=== PATIENT | male | born 1950 | race Caucasian/White ===

== ENCOUNTER 2017-03-11 17:15 | Observation (INO) | payer OTHER ==
--- NOTE | 2017-03-11 21:12 | PDOC ---
Attending Attestation - Resident Resident Name: Rick Cervantes - ED Attending Attestation I have performed the following: I have examined & evaluated the patient, The case was reviewed & discussed with the resident, I agree w/resident's findings & plan, Exceptions are as noted - HPI HPI: 03/11/17 21:07 Still bleeding Dental Extraction Site (since 1PM) - Physicial Exam PE: 03/11/17 21:09 Minimal Bleeding - Medical Decision Making 03/11/17 21:[address] Cervantes's Assessment and Plan <Rubio Cox - Last Filed: 03/11/17 21:07> - Medical Decision Making 03/12/17 00:06 Dr. Go, cardiology on-call, was called via phone answering service at this time and discussed the case with Dr. Rick Cervantes. <Laura Leach - Last Filed: 03/12/17 00:39>
--- NOTE | 2017-03-11 21:19 | PDOC ---
History of Present Illness - General Chief Complaint: Pain Stated Complaint: INJURY Time Seen by Provider: 03/11/17 20:59 History Source: Patient Exam Limitations: No Limitations - History of Present Illness Initial Comments: 03/11/17 21:11 The patient is a 66M with a PMH of HTN, DM on baby asa who presents to the ED after having a dental procedure (tooth extraction) and continuous bleeding. The patient had the dental procedure at 1300. He had continuous bleeding until 4pm when he returned to his dentist for the bleeding. At 415pm the dentist called his son to bring him to the ER. The patient has no other complaints. No allergies. Denies fever, chills, nausea, vomiting, bleeding disorders. Past History - Past Medical History Allergies/Adverse Reactions: Allergies Allergy/AdvReac Type Severity Reaction Status Date / Time No Known Allergies Allergy Verified 03/11/17 17:21 Home Medications: Ambulatory Orders Aspirin [ASA -] 162 mg PO DAILY #0 tab.chew 05/15/13 Lisinopril [Prinivil] 10 mg PO DAILY #0 tablet 05/15/13 Glipizide 10 mg PO DAILY 04/03/15 Diabetes: Yes Disorders: Yes (prostate hypertrophy) HTN: Yes - Surgical History Abdominal Surgery: Yes Orthopedic Surgery: Yes (RT SHOULDER SX 10/2014) - Immunization History Immunization Up to Date: Yes - Suicide/Smoking/Psychosocial Hx Smoking History: Never smoked Have you smoked in the past 12 months: No Hx Alcohol Use: Yes (BRAD) Drug/Substance Use Hx: No Substance Use Type: None, Alcohol Review of Systems - Review of Systems Able to Perform ROS?: Yes Is the patient limited Belarusian proficient: No Constitutional: No: Chills, Fever HEENTM: Yes: Other (Bleeding from tooth extraction). No: Eye Pain, Ear Discharge, Nose Pain Respiratory: No: Cough, Shortness of Breath Cardiac (ROS): No: Chest Pain, Palpitations ABD/GI: No: Constipated, Diarrhea, Nausea, Vomiting Musculoskeletal: No: Back Pain, Muscle Pain Integumentary: No: Bruising, Dryness Neurological: No: Headache, Numbness, Tingling, Weakness Hematologic/Lymphatic: No: Anemia, Blood Clots, Easy Bleeding, Easy Bruising *Physical Exam - Vital Signs Last Vital Signs Temp Pulse Resp BP Pulse Ox 106 H 20 161/123 100 03/11/17 18:41 03/11/17 17:17 03/11/17 18:41 03/11/17 18:41 - Physical Exam General Appearance: Yes: Nourished, Appropriately Dressed HEENT: positive: Normal Voice, Other (Tooth #29 extracted and bleeding) Respiratory/Chest: positive: Lungs Clear, Normal Breath Sounds Cardiovascular: positive: Regular Rhythm, Regular Rate, S1, S2. negative: Diastolic Murmur, Systolic Murmur Gastrointestinal/Abdominal: positive: Flat, Soft. negative: Tender Extremity: positive: Normal Inspection, Normal Range of Motion Integumentary: positive: Dry, Warm Neurologic: positive: Fully Oriented, Alert, Normal Mood/Affect ED Treatment Course - LABORATORY CBC & Chemistry Diagram: 03/11/17 22:10 03/11/17 23:50 Medical Decision Making - Medical Decision Making 03/11/17 21:40 The patient is a 66M who presented with persistent bleeding from his gum at tooth #29. I have packed the patient and told him to bite down to keep pressure. Will draw Hgb to make sure it is stable. 03/11/17 22:53 Hgb 12.6. Patient's bleeding has not stopped with gauze and pressure with tea bags. I have applied gel foam to the site and will reassess. 03/12/17 00:04 There were 2 sites of bleeding, to which I applied gel foam to both now with compression. The patient began to become diaphoretic and I ordered a fingerstick (182) and EKG which shows new RBBB with ST depressions in V3-V4 compared to an EKG from 2013 (most recent we had on file). The patient's asa is on board and due to the acute bleeding, I will not give plavix and asa. Will call cardiology for recs. 03/12/17 00:[address] Go, cardiology activities concierge, who is not concerned and states that this is most likely 2/2 to vagal stimulation. He also recommended holding off on anticoagulation 2/2 bleeding from gingiva. 03/12/17 01:[address] Navarro who accepts admission for obs tele. She recommended asking the patient for his licensed prosthetist/orthotist - he has seen the licensed prosthetist/orthotist once and does not remember his name. I have looked up the licensed prosthetist/orthotist and it is Dr. Walter. Will consult him on this admission. *DC/Admit/Observation/Transfer Diagnosis at time of Disposition: ST segment depression, Bleeding - Discharge Dispostion Condition at time of disposition: Guarded Admit: Yes - Referrals Referrals: Aisha Murphy MD [Primary Care Provider] -
[2017-03-11 22:20] LABS: BASOPHIL 0.6 % (0-2.0); EOSINOPHIL 0.6 % (0-4.5); MCH 32.2 pg (25.7-33.7); MCHC 35.4 g/dl (32.0-35.9); MEAN CELL VOLUME 90.9 fl (80-96); MEAN PLT VOLUME 8.4 fl (7.5-11.1); NEUTROPHILS 69.7 % (42.8-82.8); PLATELET COUNT 150 K/MM3 (134-434); RDW 13.9 % (11.9-15.9); WHITE BLOOD COUNT 7.7 K/mm3 (4.0-10.0)
[2017-03-11 22:42] LABS: INR 1.08 (0.82-1.09); PROTHROMBIN TIME (PATIENT) 12.2 SEC (9.98-11.88)
[2017-03-11 22:45] LABS: ACTIVATED PTT 29.8 SECONDS (26.9-34.4)
[2017-03-11 22:52] LABS: ALBUMIN 3.7 g/dl (3.4-5.0); ANION GAP 11 (8-16); BILIRUBIN,TOTAL 1.3 mg/dL (0.2-1.0); CALCIUM 8.6 mg/dL (8.5-10.1); CO2 22 mmol/L (21-32); CREATININE 0.9 mg/dL (0.7-1.3); GLUCOSE,RANDOM 155 mg/dL (74-106); SGOT/AST 33 U/L (15-37); SGPT/ALT 32 U/L (12-78); TOT PROT 7.1 g/dl (6.4-8.2)
[2017-03-11 22:53] LABS: ALK PHOS 48 U/L (45-117)
[2017-03-11] MEDS ORDERED: DEXTROSE 50%-WATER - 25 GM/50 ML VIAL IVPUSH ONE (23:35)
[2017-03-11] MEDS ORDERED: ASPIRIN 81 MG CHEWABLE TABLETS ONE (23:49)
[2017-03-11] MEDS ORDERED: CLOPIDOGREL BISULFATE 300 MG TABLET ONE (23:49)
[2017-03-11] MEDS ORDERED: ASPIRIN 81 MG CHEWABLE TABLETS PO ONE (23:54)
[2017-03-12 00:15] LABS: ALBUMIN 3.8 g/dl (3.4-5.0); ANION GAP 13 (8-16); BILIRUBIN,TOTAL 1.3 mg/dL (0.2-1.0); CALCIUM 8.4 mg/dL (8.5-10.1); CO2 22 mmol/L (21-32); CREATININE 0.9 mg/dL (0.7-1.3); GLUCOSE,RANDOM 153 mg/dL (74-106); MAGNESIUM 1.6 mg/dL (1.8-2.4); SGOT/AST 30 U/L (15-37); SGPT/ALT 32 U/L (12-78)
[2017-03-12 00:18] LABS: ALK PHOS 49 U/L (45-117); CPK 238 IU/L (39-308); TROPONIN I < 0.02 ng/ml (0.00-0.05)
[2017-03-12] MEDS ORDERED: SODIUM CHLORIDE 0.9% 1000 ML INFUS.BAG IV ONE (00:22)
[2017-03-12] MEDS ORDERED: NITROGLYCERIN 2% OINTMENT - 1GM PACKET TD ONE ×2 (00:32→00:58)
[2017-03-12 06:32] LABS: MCH 32.3 pg (25.7-33.7); MCHC 35.9 g/dl (32.0-35.9); MEAN CELL VOLUME 90.1 fl (80-96); MEAN PLT VOLUME 8.9 fl (7.5-11.1); PLATELET COUNT 171 K/MM3 (134-434); RDW 13.4 % (11.9-15.9); WHITE BLOOD COUNT 6.8 K/mm3 (4.0-10.0)
[2017-03-12 06:57] LABS: CPK 127 IU/L (39-308); TROPONIN I < 0.02 ng/ml (0.00-0.05)
--- NOTE | 2017-03-12 10:34 | PN ---
Progress Note, Physician Chief Complaint: Pt lying in bed No bleeding from tooth extraction site,No chest pain Drop in HB/HCT - Objective Vital Signs: Vital Signs Temperature 97.9 F 03/12/17 09:55 Pulse Rate 78 03/12/17 09:55 Respiratory Rate 18 03/12/17 09:55 Blood Pressure 110/64 03/12/17 09:55 O2 Sat by Pulse Oximetry (%) 100 03/12/17 08:48 Constitutional: Yes: Well Nourished HENT: Yes: WNL, Other (No bleeding from tooth extraction site) Neck: Yes: WNL Cardiovascular: Yes: WNL Respiratory: Yes: WNL Gastrointestinal: Yes: WNL, Normal Bowel Sounds Musculoskeletal: Yes: WNL Extremities: Yes: WNL Edema: No Peripheral Pulses WNL: Yes Neurological: Yes: WNL ...Motor Strength: WNL Psychiatric: Yes: WNL Labs: CBC, BMP 03/12/17 06:15 INR, PTT INR 1.08 (0.82-1.09) 03/11/17 22:10 - ....Imaging Chest X-ray: Report Reviewed EKG: Report Reviewed Assessment/Plan Bleeding from tooth extrction site Abnormal EKG HTN DM PLAN MOnitor for bleeding Cardiology F/u Monitor CBC
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
[2017-03-12 10:54] VITALS: BMI 22.6
[2017-03-12] MEDS ORDERED: DIPYRIDAMOLE STRESS TEST 42 MG in DEXTROSE 5%-WATER - 33.6 ML IVPB ONE (12:15)
[2017-03-12] MEDS ORDERED: REGADENOSON 0.4 MG/5 ML PRE-FILLED SYRINGE IVPUSH ONE (12:15)
--- NOTE | 2017-03-12 12:34 | HP ---
DATE OF ADMISSION: 03/12/2017 HISTORY OF PRESENT ILLNESS: Patient is a 66-year-old male with history of hypertension and diabetes, who presented to the emergency room after having a tooth extraction and continuous bleeding from extraction site. The tooth was extracted around 2 o'clock yesterday and had continuous bleeding until 4 p.m., and he had returned to the dental office, recommended to come to the ER for evaluation. PAST MEDICAL HISTORY: History of hypertension, diabetes, history of enlarged prostate. SURGICAL HISTORY: Right shoulder surgery. ALLERGIES: No known drug allergies. MEDICATIONS: Patient is taking lisinopril, aspirin, and glipizide 10 mg daily. REVIEW OF SYSTEMS: General: No fever. HEENT: Toothache present and bleeding from the extraction site. Chest: Nothing significant. Cardiovascular: History of hypertension. Endocrine: History of diabetes. Gastrointestinal: Nothing significant. Genitourinary: History of enlarged prostate. Neurological: Nothing significant. PHYSICAL EXAMINATION: Vital Signs: The patient in the emergency room pulse rate 106, respirations 20, blood pressure 161/110, pulse oximetry 100%. Head and Neck: There is bleeding from the tooth extraction site in the lower jaw. Neck is supple. No JVD. Chest: Clear. Cardiovascular: The first and second sounds normal. Abdomen: Soft. No tenderness. No distension. Bowel sounds present. Neurologic: Alert, oriented x3. No apparent motor or sensory deficit. Deep tendon reflexes normal. Pressure applied at the bleeding site. On examination, according to the emergency room note, patient felt diaphoretic and sweaty. Fingerstick was done, and it was 182. Patient was not complaining of any chest pain, palpitations. No syncopal episode. Regarding the blood work, CBC normal. CMP normal. INR 1.08. PT 12.2, PTT 29.8. Platelets 150. ALT and AST normal. Troponin less than 0.2. Total bilirubin 1.3, alkaline phosphatase 49. EKG done shows right bundle branch block, ST depression in leads V3 and V4. Compared to the old EKG in 2013, the ST depression is a new change. Addendum: As per the patient, he is an alcoholic. The patient had a stress test done last year, and it was normal. The patient is admitted to telemetry for observation. ADMITTING DIAGNOSES: 1. Bleeding from tooth extraction site. 2. Abnormal electrocardiogram. PLAN: Continue the home medications. Cardiology consult. Hold aspirin. Monitor the labs. Monitor for bleeding. The patient is stable on the floor. ALYSSA CODY M.D. /[id number]
--- NOTE | 2017-03-12 12:59 | EKG ---
Test Reason : Blood Pressure : / mmHG Vent. Rate : 082 BPM Atrial Rate : 082 BPM P-R Int : 194 ms QRS Dur : 146 ms QT Int : 416 ms P-R-T Axes : 057 025 006 degrees QTc Int : 486 ms NORMAL SINUS RHYTHM RIGHT BUNDLE BRANCH BLOCK T WAVE ABNORMALITY, CONSIDER INFERIOR ISCHEMIA ABNORMAL ECG WHEN COMPARED WITH ECG OF 14-MAY-2013 10:54, RIGHT BUNDLE BRANCH BLOCK IS NOW PRESENT Confirmed by JAKY OSORIO, VIVIANE ([id number]) on 03/12/2017 12:58:46 PM Referred By: Confirmed By:VIVIANE STARKEY MD
[2017-03-12] MEDS ORDERED: ACETAMINOPHEN 325 MG TABLET (FP) PO PRN (20:55)
[2017-03-13] MEDS ORDERED: glipiZIDE 10 MG TABLET (FP) PO SCH (07:00)
[2017-03-13 07:20] LABS: BASOPHIL 0.9 % (0-2.0); MCH 31.8 pg (25.7-33.7); MCHC 35.5 g/dl (32.0-35.9); MEAN CELL VOLUME 89.5 fl (80-96); MEAN PLT VOLUME 8.6 fl (7.5-11.1); NEUTROPHILS 45.5 % (42.8-82.8); PLATELET COUNT 127 K/MM3 (134-434); RDW 13.9 % (11.9-15.9); WHITE BLOOD COUNT 4.2 K/mm3 (4.0-10.0)
--- NOTE | 2017-03-13 09:46 | PN ---
Progress Note (short form) - Note Progress Note: s: no cp sob palps dizzy o: Vital Signs Period Temp Pulse Resp BP Sys/Bates Pulse Ox Last 24 Hr 97.7 F-98.5 F 76-90 17-19 110-136/61-79 100-100 nad no jvd rrr s1s2 no mrg cta bl nl eff aaox3 no le e/c/c no jaundice diaphoresis abd nt nd pos bs Current Medications Generic Name Dose Route Start Last Admin Trade Name Freq PRN Reason Stop Dose Admin Acetaminophen 650 mg 03/12/17 20:55 03/12/17 21:10 Tylenol - PO 650 mg Q6H PRN Administration FEVER OR PAIN Glipizide 10 mg 03/13/17 07:00 03/13/17 06:51 Glucotrol - PO 10 mg DAILY@0700 JENNIFER Administration Valsartan 160 mg 03/13/17 10:00 03/13/17 09:36 Diovan - PO 160 mg DAILY JENNIFER Administration Laboratory Last Values WBC 4.2 K/mm3 (4.0-10.0) D 03/13/17 06:45 RBC 2.88 M/mm3 (4.00-5.60) L 03/13/17 06:45 Hgb 9.2 GM/dL (11.7-16.9) L 03/13/17 06:45 Hct 25.8 % (35.4-49) L 03/13/17 06:45 MCV 89.5 fl (80-96) 03/13/17 06:45 MCH 31.8 pg (25.7-33.7) 03/13/17 06:45 MCHC 35.5 g/dl (32.0-35.9) 03/13/17 06:45 RDW 13.9 % (11.9-15.9) 03/13/17 06:45 Plt Count 127 K/MM3 (134-434) L D 03/13/17 06:45 MPV 8.6 fl (7.5-11.1) 03/13/17 06:45 Neutrophils % 45.5 % (42.8-82.8) D 03/13/17 06:45 Lymphocytes % 43.7 % (8-40) H D 03/13/17 06:45 Monocytes % 7.9 % (3.8-10.2) 03/13/17 06:45 Eosinophils % 2.0 % (0-4.5) D 03/13/17 06:45 Basophils % 0.9 % (0-2.0) 03/13/17 06:45 PT with INR 12.20 SEC (9.98-11.88) H 03/11/17 22:10 INR 1.08 (0.82-1.09) 03/11/17 22:10 PTT (Actin FS) 29.8 SECONDS (26.9-34.4) 03/11/17 22:10 Sodium 137 mmol/L (136-145) 03/11/17 23:50 Potassium 3.7 mmol/L (3.5-5.1) 03/11/17 23:50 Chloride 102 mmol/L (98-107) 03/11/17 23:50 Carbon Dioxide 22 mmol/L (21-32) 03/11/17 23:50 Anion Gap 13 (8-16) 03/11/17 23:50 BUN 21 mg/dL (7-18) H 03/11/17 23:50 Creatinine 0.9 mg/dL (0.7-1.3) 03/11/17 23:50 Creat Clearance w eGFR > 60 (>60) 03/11/17 23:50 POC Glucometer 187 UNITS (()) 03/13/17 06:50 Random Glucose 153 mg/dL (74-106) H 03/11/17 23:50 Calcium 8.4 mg/dL (8.5-10.1) L 03/11/17 23:50 Magnesium 1.6 mg/dL (1.8-2.4) L 03/11/17 23:50 Total Bilirubin 1.3 mg/dL (0.2-1.0) H 03/11/17 23:50 AST 30 U/L (15-37) 03/11/17 23:50 ALT 32 U/L (12-78) 03/11/17 23:50 Alkaline Phosphatase 49 U/L (45-117) 03/11/17 23:50 Creatine Kinase 127 IU/L (39-308) 03/12/17 06:15 Creatine Kinase Index 1.0 % (0.0-5.0) 03/11/17 23:50 CK-MB (CK-2) 2.390 ng/mL (0.5-3.6) 03/11/17 23:50 Troponin I < 0.02 ng/ml (0.00-0.05) 03/12/17 06:15 Total Protein 7.0 g/dl (6.4-8.2) 03/11/17 23:50 Albumin 3.8 g/dl (3.4-5.0) 03/11/17 23:50 Blood Type A POSITIVE 03/12/17 06:15 Antibody Screen Negative 03/12/17 06:15 cxr: clear lungs ecg 03/11/17: sr, rbbb, no st changes echo 02/2017: nl lv/rv, no sig valve path mibi 02/2017: no ischemia, nl lvef tele: sr, artifact a/p: 66 m hx htn, dm, hld here with gum bleeding after dental extraction. abnl ecg: -had likely vasovagal episode during gum bleeding. ecg shows rbbb which is new from several years ago. -no signs acs, ce's negx2 -pt has no cp/sob/angina -echo and mibi here unremarkable htn: -cont home meds hld: -stable pt ok for dc today from cardiac pov
--- NOTE | 2017-03-13 09:53 | PN ---
Progress Note, Physician Chief Complaint: Pt lying in bed No bleeding from tooth extraction site,No chest pain HB/HCT stable exercise and nuclear stress report negative ECHO nl d/c home - Current Medication List Current Medications: Active Medications Acetaminophen (Tylenol -) 650 mg PO Q6H PRN PRN Reason: FEVER OR PAIN Last Admin: 03/12/17 21:10 Dose: 650 mg Glipizide (Glucotrol -) 10 mg PO DAILY@0700 [facility] Last Admin: 03/13/17 06:51 Dose: 10 mg Valsartan (Diovan -) 160 mg PO DAILY [facility] Last Admin: 03/13/17 09:36 Dose: 160 mg - Objective Vital Signs: Vital Signs Temperature 97.7 F 03/13/17 06:00 Pulse Rate 76 03/13/17 06:00 Respiratory Rate 17 03/13/17 06:00 Blood Pressure 136/67 03/13/17 06:00 O2 Sat by Pulse Oximetry (%) 100 03/13/17 00:00 Constitutional: Yes: No Distress Eyes: Yes: Conjunctiva Clear HENT: Yes: Atraumatic Neck: Yes: Supple Cardiovascular: Yes: Regular Rate and Rhythm Respiratory: Yes: Regular, CTA Bilaterally Gastrointestinal: Yes: Normal Bowel Sounds, Soft Musculoskeletal: Yes: WNL Extremities: Yes: WNL Edema: Yes Peripheral Pulses WNL: Yes Neurological: Yes: WNL, Alert ...Motor Strength: WNL Psychiatric: Yes: WNL, Alert Labs: CBC, BMP 03/13/17 06:45 INR, PTT INR 1.08 (0.82-1.09) 03/11/17 22:10 Assessment/Plan Bleeding from tooth extrction site,controlled Abnormal EKG HTN DM Stress test negative PLAN d/c home on home meds F/u with Pmd Hold ASA
[2017-03-13] MEDS ORDERED: VALSARTAN 160 MG TABLET (UD) PO SCH (10:00)
[2017-03-13 10:23] VITALS: BP 132/68; PULSE 77; TEMP 98
--- NOTE | 2017-03-17 15:12 | DS ---
Physical Examination Vital Signs: Vital Signs Temperature 98.0 F 03/13/17 10:00 Pulse Rate 77 03/13/17 10:00 Respiratory Rate 18 03/13/17 10:00 Blood Pressure 132/68 03/13/17 10:00 O2 Sat by Pulse Oximetry (%) 100 03/13/17 00:00 Labs: CBC, BMP 03/13/17 06:45 Discharge Summary Reason For Visit: ST SEGMENT DEPRESSION/HEMORRHAGE Gum bleeding after dental extraxction Syncopal ?vasovagal episode Htn DM Hospital Course: Ptwith h/o HTN,DM kept for observation for bleeding after dental extraction.Pt developed diaphoresis? vasovagal episode in the ER.EKS shows new RBBB and T wave changes.Cardiac enzymes were NL.CBC,CMP were NL.X ray chest no infiltrate.Pt was seen by cardiology.ECHO and stress tests were NL Pt was stable on the FLoor.No bleeding noticed after hospitalisation.Pt d/c home on home medications in a stable condition and rec to f/u with dentist and f /u with PMD Condition: Stable - Instructions Referrals: Aisha Murphy MD [Primary Care Provider] - Disposition: HOME - Home Medications Comprehensive Discharge Medication List: Ambulatory Orders Lisinopril [Prinivil] 10 mg PO DAILY #0 tablet 05/15/13 Glipizide 10 mg PO DAILY 04/03/15
== END 2017-03-13 10:36 | disposition home or self-care (01) ==
LOC: JER 17:15 → JERBED 03-12 01:14 → UNDOADMOB 03-12 01:50 → JERBED 03-12 01:50 → J4W 03-12 09:23
PROVIDERS: ADMIT Family Medicine; ATTEND Family Medicine
PROC: 3E033GC Introduction of Other Therapeutic Substance into Peripheral Vein, Percutaneous Approach (ICD-10-PCS; principal; 2017-03-12)
PROC: 3E0337Z Introduction of Electrolytic and Water Balance Substance into Peripheral Vein, Percutaneous Approach (ICD-10-PCS; 2017-03-12)
DX: K91.840 Postprocedural hemorrhage of a digestive system organ or structure following a digestive system procedure (principal); R94.31 Abnormal electrocardiogram [ECG] [EKG]; I10 Essential (primary) hypertension; I45.10 Unspecified right bundle-branch block; E11.9 Type 2 diabetes mellitus without complications; Z79.82 Long term (current) use of aspirin; Z79.84 Long term (current) use of oral hypoglycemic drugs
CPT/HCPCS: 36415; 71020-TC; 78452-TC; 80053; 82550; 82553; 83735; 84484; 85025; 85027; 85610; 85730; 86850; 86900; 86901; 93005; 93010; 93017; 93306-TC; 96374; 99284-25; A9502; G0378; J2785

== ENCOUNTER 2017-07-17 10:11 | Day surgery (SDC) | payer OTHER ==
[2017-07-16 14:19] VITALS: BMI 26.4
--- NOTE | 2017-07-17 09:12 | HP ---
History & Physical Update - History History: No Change - Physical Physical: No Change - Assessment Assessment: No Change - Plan Plan: No Change
[2017-07-17] MEDS ORDERED: BUPIVACAINE HCL/PF 0.5% (5MG/ML) 10 ML VIAL ONE (12:38)
[2017-07-17] MEDS ORDERED: fentaNYL CITRATE 250 MCG/5 ML VIAL ONE (12:44)
[2017-07-17] MEDS ORDERED: ROCURONIUM BROMIDE 50 MG/5 ML VIAL ONE ×2 (12:45→13:40)
[2017-07-17] MEDS ORDERED: SUCCINYLCHOLINE CHLORIDE 200 MG/10 ML VIAL ONE (12:45)
[2017-07-17] MEDS ORDERED: PROPOFOL 20 ML ONE (12:45)
[2017-07-17] MEDS ORDERED: ceFAZolin SODIUM 1 GM VIAL IVPB ONE (12:52)
[2017-07-17] MEDS ORDERED: KETOROLAC TROMETHAMINE 30 MG/1 ML VIAL ONE (13:50)
[2017-07-17] MEDS ORDERED: LIDOCAINE HCL/PF 2% SDV 5ML VIAL ONE (13:50)
[2017-07-17] MEDS ORDERED: GLYCOPYRROLATE 0.2 MG/1 ML VIAL ONE (13:50)
[2017-07-17] MEDS ORDERED: DEXAMETHASONE SOD PHOSPHATE 4 MG/1 ML VIAL ONE (13:50)
[2017-07-17] MEDS ORDERED: ceFAZolin SODIUM 1 GM VIAL ONE (13:51)
[2017-07-17] MEDS ORDERED: NEOSTIGMINE METHYLSULFATE 0.5 MG/ML - 10 ML MDV ONE (13:51)
[2017-07-17] MEDS ORDERED: BUPIVACAINE HCL/PF 0.5% (5MG/ML) 10 ML VIAL IJ ONE (13:55)
--- NOTE | 2017-07-17 14:04 | OP ---
Operative Note - Note: Operative Date: 07/17/17 Pre-Operative Diagnosis: Cholelithiais, cholecystitis. Operation: Laparoscopic cholecystectomy, lusis of intestinal and peritoneal adhesions. Findings: Long gallbladder with adhesions of small bowel, with calculii. Surgeon: Thuy Haley [employer] Gatherer: Ayesha Bronson Anesthesia: General Specimens Removed: Gallbladder. Estimated Blood Loss (mls): 25 Operative Report Dictated: Yes
[2017-07-17] MEDS ORDERED: IBUPROFEN 600 MG TABLET (FP) PO PRN (14:16)
--- NOTE | 2017-07-17 14:18 | SURG ---
Surgery Apartment Community Manager Note Apartment Community Manager: Ayesha Bronson PA-C Date of Service: 07/17/17 Diagnosis: Cholelithiasis, Cholecystitis Procedure: Laparoscopic cholecystectomy, lusis of intestinal and peritoneal adhesions. I was present for the entirety of the operative procedure. For further detail, please refer to operative report. Visit type - Case Type Case Type: Scheduled Admission - Emergency Emergency Visit: No - New patient This patient is new to me today: Yes Date on this admission: 07/17/17
[2017-07-17] MEDS ORDERED: ACETAMINOPHEN 325 MG TABLET (FP) PO PRN ×2 (14:22)
[2017-07-17] MEDS ORDERED: oxyCODONE HCL 5 MG TABLET PO PRN ×2 (14:22)
[2017-07-17] MEDS ORDERED: ONDANSETRON 4 MG/2 ML VIAL IVPUSH PRN (14:36)
[2017-07-17] MEDS ORDERED: LACTATED RINGERS SOLUTION 1,000 ML IV SCH (14:45)
[2017-07-17 15:48] LABS: HEMATOCRIT 40.7 % (35.4-49); HEMOGLOBIN 13.9 GM/dL (11.7-16.9); MCH 28.7 pg (25.7-33.7); MCHC 34.2 g/dl (32.0-35.9); MEAN CELL VOLUME 83.9 fl (80-96); MEAN PLT VOLUME 9.5 fl (7.5-11.1); PLATELET COUNT 174 K/MM3 (134-434); RBC 4.85 M/mm3 (4.00-5.60); RDW 14.2 % (11.9-15.9); WHITE BLOOD COUNT 8.3 K/mm3 (4.0-10.0)
--- NOTE | 2017-07-17 15:48 | OP ---
DATE OF OPERATION: 07/17/2017 PREOPERATIVE DIAGNOSIS: Cholelithiasis, chronic cholecystitis. POSTOPERATIVE DIAGNOSIS: Cholelithiasis, chronic cholecystitis. Intestinal internal adhesions around the gallbladder. OPERATIVE PROCEDURE: Laparoscopic cholecystectomy, lysis of intestinal adhesions. SURGEON: mE Haley M.D. TOOL CRIB MANAGER: Addie Cedillo ANESTHESIA: General anesthesia. OPERATIVE DESCRIPTION: This 66-year-old man has chronic right upper quadrant abdominal pain and was found to have gallstones. Patient was brought in for laparoscopic cholecystectomy. Risks, benefits, and complications had been discussed with the patient. General anesthesia was administered, the abdomen painted and draped. An incision was made in the infraumbilical portion of the umbilicus. This was deepened inside the skin, subcutaneous tissue, and the linea alba. The peritoneum was incised, and a 10 to 12 mm laparoscopic trocar, of the Farias type, was introduced into the abdominal cavity. The abdomen was inflated with carbon dioxide at 6 L per minute with maximum intraabdominal pressures of 15 mmHg. A 5 -mm camera was introduced into the abdominal cavity. The patient seemed to have adhesions in the right lower quadrant of the abdomen from prior surgery; however , the right upper quadrant had no adhesions. Two 5-mm trocars were inserted in the right upper quadrant of the abdomen, one along the mid clavicular line, and another along the anterior axillary line 2-3 fingerbreadths below the costal margin. These were noted anterior abdominal cavity through the laparoscopic camera. A 3rd 5-mm trocar was inserted in the midline in subxiphoid area. This was noted into the abdominal cavity to the right of the first round ligament. The gallbladder was then visualized. The gallbladder was grasped at the fundus with a grasper through the lateral 5-mm port site. The gallbladder was inserted cephalad and laterally, thus exposing the rest of the gallbladder. The gallbladder was long, and infundibulum of the gallbladder was surrounded with peritoneal adhesions as well as the duodenum. This was carefully lysed with sharp and blunt dissection and exposing the infundibulum. Once the infundibulum was exposed, this was grasped with another grasper through the middle 5-mm port site. This was retracted inferiorly and laterally to expose the Calot 's triangle. With an Endoshear on the subxiphoid port, the peritoneal reflection around the infundibulum of the gallbladder and the cystic duct was incised and with sharp and blunt dissection the gallbladder and the cystic duct were isolated circumferentially. Further blunt dissection exposed the cystic artery within the Calot's triangle, thus exposing the critical view. The cystic artery was then divided between clips. After dividing the cystic artery, there was noted some bleeding. This was controlled with a sponge placed within the gallbladder fossa and pressure. The cystic duct was then divided between clips. The peritoneal reflection on either side of the gallbladder was then incised and the gallbladder dissected with sharp and blunt dissection all the way to the fundus of the gallbladder. The cholecystectomy was also accomplished. An Endocatch was introduced through the umbilical port. The gallbladder was placed in Endocatch and retrieved out of the abdominal cavity. The camera was switched to the subxiphoid port during this procedure. The gallbladder contained stones. When this was done, the gallbladder fossa was then again visualized. The packing was removed, no bleeding was noted. Visibility was good. Cystic artery clips were intact. Gallbladder fossa was then thoroughly irrigated with normal saline, the fluid return was clear. There was no bleeding. Two pieces of Surgicel were then placed through the umbilical port and placed in the gallbladder fossa at the site of the gallbladder neck. The camera was switched between the 5-mm and the 10-mm camera, as needed. Hemostasis was satisfactory at the completion of the procedure. Estimated blood loss was about 25 mL. The instruments were withdrawn under direct vision, the linea alba in the midline was approximated with interrupted and [id number] 2-0 Vicryl sutures , 0.4% Marcaine was injected into the wound. Skin approximated with buried interrupted 4-0 Monocryl sutures. Patient tolerated the procedure well, was extubated and sent to the recovery room in satisfactory and stable condition. Sheldon [id number] cc: PORSHA
[2017-07-17] MEDS: SODIUM CHLORIDE 1,000 ML IV SCH (17:15)
[2017-07-17] MEDS: glipiZIDE 10 MG TABLET (FP) PO SCH (17:48)
[2017-07-17] MEDS: metFORMIN HCL 500 MG TABLET (FP) PO SCH (17:48)
[2017-07-17] MEDS: INSULIN SLIDING SCALE (NOVOLOG) 1 VIAL SQ SCH (17:49)
[2017-07-17 21:59] LABS: HEMATOCRIT 35.6 % (35.4-49); HEMOGLOBIN 12.1 GM/dL (11.7-16.9); MCH 28.4 pg (25.7-33.7); MCHC 33.9 g/dl (32.0-35.9); MEAN CELL VOLUME 83.8 fl (80-96); PLATELET COUNT 202 K/MM3 (134-434); RBC 4.25 M/mm3 (4.00-5.60); RDW 14.4 % (11.9-15.9); WHITE BLOOD COUNT 6.8 K/mm3 (4.0-10.0)
[2017-07-18 02:06] VITALS: PULSE 57
[2017-07-18 05:53] VITALS: BP 117/52; TEMP 98.4
[2017-07-18] MEDS: metFORMIN HCL 500 MG TABLET (FP) PO SCH (06:24)
[2017-07-18] MEDS: glipiZIDE 10 MG TABLET (FP) PO SCH (06:24)
[2017-07-18] MEDS: INSULIN SLIDING SCALE (NOVOLOG) 1 VIAL SQ SCH ×2 (06:29→11:14)
[2017-07-18] MEDS: SODIUM CHLORIDE 1,000 ML IV SCH (06:33)
[2017-07-18] MEDS ORDERED: INSULIN (NOVOLOG) ASPART 100 UNITS/ML 10ML VIAL ONE (06:38)
[2017-07-18 08:05] LABS: HEMATOCRIT 36.2 % (35.4-49); HEMOGLOBIN 12.1 GM/dL (11.7-16.9); MCHC 33.5 g/dl (32.0-35.9); MEAN CELL VOLUME 83.5 fl (80-96); MEAN PLT VOLUME 9.5 fl (7.5-11.1); PLATELET COUNT 212 K/MM3 (134-434); RBC 4.34 M/mm3 (4.00-5.60); RDW 14.2 % (11.9-15.9); WHITE BLOOD COUNT 8.3 K/mm3 (4.0-10.0)
[2017-07-18] MEDS ORDERED: PT OWN MED DRAWER 7, Y5N ONE (09:54)
[2017-07-18] MEDS ORDERED: FENOFIBRIC ACID 135 MG CAP PO SCH (10:00)
[2017-07-18] MEDS ORDERED: VALSARTAN 160 MG TABLET (UD) PO SCH (10:00)
--- NOTE | 2017-07-18 10:48 | PN ---
Progress Note, Physician - Current Medication List Current Medications: Active Medications Acetaminophen (Tylenol -) 325 mg PO Q4H PRN PRN Reason: PAIN LEVEL 1-5 Stop: 07/20/17 14:21 Acetaminophen (Tylenol -) 650 mg PO Q4H PRN PRN Reason: PAIN LEVEL 6-10 Stop: 07/20/17 14:21 Last Admin: 07/17/17 21:52 Dose: 650 mg Fenofibric Acid (Trilipix -) 135 mg PO DAILY [facility] Last Admin: 07/18/17 09:56 Dose: 135 mg Glipizide (Glucotrol -) 10 mg PO BIDI [facility] Last Admin: 07/18/17 06:24 Dose: 10 mg Sodium Chloride (Normal Saline -) 1,000 mls @ 75 mls/hr IV ASDIR [facility] Last Admin: 07/18/17 06:33 Dose: 75 mls/hr Lactated Ringer's (Lactated Ringers Solution) 1,000 mls @ 75 mls/hr IV ASDIR [facility] Last Admin: 07/17/17 15:01 Dose: 350 mls Ibuprofen (Motrin -) 600 mg PO Q6H PRN PRN Reason: FEVER Insulin Aspart (Novolog Vial Sliding Scale -) 1 vial SQ TIDAC [facility] PRN Reason: Protocol Last Admin: 07/18/17 06:29 Dose: 2 units Metformin HCl (Glucophage -) 500 mg PO BIDI [facility] Last Admin: 07/18/17 06:24 Dose: 500 mg Ondansetron HCl (Zofran Injection) 4 mg IVPUSH Q6H PRN PRN Reason: NAUSEA AND/OR VOMITING Oxycodone HCl (Roxicodone -) 5 mg PO Q4H PRN PRN Reason: PAIN LEVEL 1-5 Oxycodone HCl (Roxicodone -) 10 mg PO Q4H PRN PRN Reason: PAIN LEVEL 6-10 Last Admin: 07/17/17 21:51 Dose: 10 mg Valsartan (Diovan -) 160 mg PO DAILY [facility] Last Admin: 07/18/17 09:56 Dose: 160 mg - Objective Vital Signs: Vital Signs Temperature 98.4 F 07/18/17 05:30 Pulse Rate 57 L 07/18/17 05:30 Respiratory Rate 16 07/18/17 05:30 Blood Pressure 117/52 07/18/17 05:30 O2 Sat by Pulse Oximetry (%) 97 07/17/17 21:00 Labs: CBC, BMP 07/18/17 06:30 Assessment/Plan Patient is out of bed, talking. Abdomen is soft , not tender. Hematocrit is stable. Discharge home. Follow up in my office.
--- NOTE | 2017-07-21 13:36 | PATH ---
Surgical Pathology Report Patient Name: KAERN DIANA [facility]. Rec. #: [id number] /Age/Gender: 1950 (Age: 66) / M Account: [id number] Location: [facility] SURGICAL Taken: 07/17/2017 Received: 07/20/2017 Reported: 07/21/2017 Physicians: Em Haley M.D. Specimen(s) Received GALLBLADDER Clinical History Cholelithiasis, chronic cholecystitis Final Diagnosis GALLBLADDER, LAPAROSCOPIC CHOLECYSTECTOMY: CHRONIC CHOLECYSTITIS AND CHOLELITHIASIS. Electronically Signed Ngozi Conley M.D. Gross Description Received in formalin, labeled "gallbladder," is a 6.0 x 2.2 x 2.0 cm. gallbladder with a 0.2 cm. in length portion of cystic duct attached. The outer surface is cortés green and varies from smooth to shaggy. The lumen contains green, tenacious bile as well as multiple black, irregular to fragmented cholelith ranging from 0.1-1.0 cm in greatest dimension. The mucosa is green and velvety. The wall of the gallbladder averages 0.1 cm. in thickness. Side Door Man sections are submitted in one cassette. 07/20/201707/20/2017
== END 2017-07-18 12:06 | disposition home or self-care (01) ==
LOC: JASU-SURG 10:11 → J6S 17:15 → JASU-SURG 07-18 12:06
PROVIDERS: ATTEND Specialist
PROC: 0FT44ZZ Resection of Gallbladder, Percutaneous Endoscopic Approach (ICD-10-PCS; principal; 2017-07-17 12:00)
DX: K80.10 Calculus of gallbladder with chronic cholecystitis without obstruction (principal); K66.0 Peritoneal adhesions (postprocedural) (postinfection)
CPT/HCPCS: 36415; 82962; 85027; 88304-TC; 94760

== ENCOUNTER 2017-10-30 08:22 | Day surgery (SDC) | payer OTHER ==
[2017-10-29 09:00] VITALS: BMI 26.2
--- NOTE | 2017-10-30 10:32 | HP ---
[facility] - Chief Complaint Chief Complaint: Mass and pain in left groin for past 3 months. History Source: Patient Limitations to Obtaining History: No Limitations - Past Medical History Allergies/Adverse Reactions: Allergies Allergy/AdvReac Type Severity Reaction Status Date / Time No Known Allergies Allergy Verified 10/29/17 08:53 Cardiovascular: Yes: HTN - Current Medications Current Medications: Home Medications Medication Instructions Recorded Glipizide 10 mg PO BID 04/03/15 Fenofibrate Nanocrystallized 145 mg PO DAILY 07/17/17 [Fenofibrate] Valsartan 160 mg PO DAILY 07/17/17 metFORMIN HCL [Metformin HCl] 500 mg PO BID 07/17/17 Satellite Physical Exam - Physical Examination Vital Signs: Vital Signs Period Temp Pulse Resp BP Sys/Bates Pulse Ox Last 24 Hr 98.4 F 62 18 116/67 100 Abdomen: Other (Left inguinal hernia, pain and impulse on cough in left groin) [facility] Impression/Plan - Impression/Plan Impression: Left inguinal hernia Operative Procedure: Repair of left inguinal hernia with mesh. Date to be Performed: 10/30/17
--- NOTE | 2017-10-30 10:32 | HP ---
History & Physical Update - History History: No Change - Physical Physical: No Change - Assessment Assessment: No Change - Plan Plan: No Change
[2017-10-30] MEDS ORDERED: LIDOCAINE HCL 1%, 10 MG/ML (20ML VIAL) ONE (11:09)
[2017-10-30] MEDS ORDERED: oxyCODONE HCL 5 MG TABLET PO PRN (11:11)
[2017-10-30] MEDS ORDERED: ONDANSETRON 4 MG/2 ML VIAL IVPUSH PRN (11:11)
[2017-10-30] MEDS ORDERED: LACTATED RINGERS SOLUTION 1,000 ML IV SCH (11:15)
[2017-10-30] MEDS ORDERED: ceFAZolin SODIUM 1 GM VIAL IVPB ONE (11:45)
--- NOTE | 2017-10-30 13:00 | OP ---
Operative Note - Note: Operative Date: 10/30/17 Pre-Operative Diagnosis: Left inguinal hernia. Operation: Repair of left inguinal hernia with plug and mesh. Findings: Large direct hernia, with a large lipoma of cord. Post-Operative Diagnosis: Other (Large direct left inguinal hernia.) Surgeon: Thuy Haley Electrotyper: Ayesha Bronson Anesthesiologist/STEMMER MACHINE: Gamaliel Lopez Anesthesia: Spinal Specimens Removed: Lipoma of cord Estimated Blood Loss (mls): 5 Operative Report Dictated: Yes
--- NOTE | 2017-10-30 13:16 | SURG ---
Surgery Edge Stripper Note Edge Stripper: Ayesha Bronson PA-C Date of Service: 10/30/17 Diagnosis: Left inguinal hernia. Procedure: Repair of left inguinal hernia with plug and mesh. I was present for the entirety of the operative procedure. For further detail, please refer to operative report. Visit type - Case Type Case Type: Scheduled - Emergency Emergency Visit: No - New patient This patient is new to me today: Yes Date on this admission: 10/30/17
[2017-10-30 16:37] VITALS: TEMP 97.8
--- NOTE | 2017-10-30 17:01 | OP ---
DATE OF OPERATION: 10/30/2017 PREOPERATIVE DIAGNOSIS: Left inguinal hernia. POSTOPERATIVE DIAGNOSIS: Left inguinal hernia of the direct type. OPERATIVE PROCEDURE: Repair of left inguinal hernia with plug and mesh. SURGEON: Em Haley M.D. CORE MAKER: Addie Cedillo ANESTHESIA: Spinal anesthesia. OPERATIVE DESCRIPTION: This 67-year-old man had pain and swelling in the left groin with pain . Patient was diagnosed to have left inguinal hernia. Has previously has had right inguinal hernia repair. Consult was obtained. Risks, benefits, and complications were discussed with the patient. Site was marked. Patient was brought to the operating room. Spinal anesthesia was administered. The left groin was prepped and draped. Timeout was called. He was given a gram of Ancef. An incision was made in the left groin at the level of the skin crease. This was deepened through the skin, subcutaneous tissue, Ziyad fascia, all the way down to external oblique aponeurosis. Hemostasis was maintained throughout the procedure. The external oblique aponeurosis was incised in the direction of its fibers and opened at the level of the inguinal canal. The ilioinguinal and iliohypogastric nerves were identified and preserved throughout the procedure. The cord structures were then isolated at the level of the pubic tubercle and wrapped around a half inch [place] drain. The cord structures were then inspected. There was no evidence of an intact hernia. There was a large lipoma of the cord which was all the way up to the internal ring, large direct hernia. A large plug was inserted through the internal ring and placed beyond the transversalis fascia. This was anchored with two 2-0 Prolene sutures. The sutures were placed, one above and medial to the cord , and another above and lateral to the cord. Suture was passed through the internal oblique and transversus abdominis muscle, brought out through the internal ring, caught the outer leaf of the plug through and through. It was reintroduced through the internal ring and brought out through the transversalis fascia and the internal oblique and transversus abdominis muscle. The preperitoneal fat was from the posterior wall of the inguinal canal. The plug was then inserted through the internal ring and placed beyond the transversalis fascia. A large mesh was then placed over the internal oblique muscle to bridge the defect between the shelving edge of the inguinal ligament and the internal oblique muscle. The mesh was anchored at the level of the pubic tubercle with 2-0 Prolene sutures. The inferior leaf of the mesh was placed over the shelving edge of the inguinal ligament and anchored with the VersaTack tacking device. The superior leaf of the mesh was incorporated to the 2-0 Prolene suture holding the plug behind the internal oblique muscle, and the transversalis fascia. This was brought through the mesh and the knot was fastened, thus then bridging the internal oblique muscle, the transversus abdominis muscle and fascia between the mesh anteriorly and the plug posteriorly. The lateral Prolene suture was brought through both the leaves of the mesh as it came around the internal ring, and the knot was fastened, thus creating a new internal ring. The defect was thus adequately repaired. Hemostasis was satisfactory. Then 0.5% Marcaine was entered into the wound and around the cord structures as well as the ilioinguinal nerve and the iliohypogastric nerves. Both of them were preserved intact. A new inguinal canal was created by approximating the external oblique aponeurosis with continuous 3-0 Vicryl sutures. The Ziyad fascia was approximated with buried interrupted 3-0 Vicryl sutures. The subcutaneous fat was then approximated with buried interrupted 3-0 Vicryl sutures. Skin approximated with continuous 4-0 Monocryl sutures in a running subcuticular fashion. Sponge count and instrument count was correct. Estimated blood loss was less than 20 mL. Patient tolerated the procedure well and sent to the recovery room in satisfactory and stable condition. Dermabond was applied across the skin edges. Sheldon [id number] MTDD
[2017-10-30] MEDS ORDERED: oxyCODONE HCL 5 MG TABLET ONE (17:42)
[2017-10-30 19:51] VITALS: BP 139/76; PULSE 75
--- NOTE | 2017-11-02 15:20 | PATH ---
Surgical Pathology Report Patient Name: KAREN DIANA [facility]. Rec. #: [id number] /Age/Gender: 1950 (Age: 67) / M Account: [id number] Location: [facility] SURGICAL Taken: 10/30/2017 Received: 10/30/2017 Reported: 11/02/2017 Physicians: Em Haley M.D. Specimen(s) Received LIPOMA OF CORD Clinical History Left inguinal hernia Final Diagnosis LIPOMA OF CORD, EXCISION: MATURE ADIPOSE TISSUE, CONSISTENT WITH LIPOMA. Electronically Signed Narcisa Jackson M.D. Gross Description Received in formalin, labeled "lipoma of cord" is a piece of yellow adipose tissue measuring 6 x 2 x 2 cm. the specimen is serially sectioned and revealed homogeneous yellow adipose tissue. [employer] sections are submitted in one cassette. CATA/10/30/2017 kathryn/10/30/2017
== END 2017-10-30 19:50 | disposition home or self-care (01) ==
LOC: JASU-SURG 08:22
PROVIDERS: ATTEND Specialist
PROC: 0YU60JZ Supplement Left Inguinal Region with Synthetic Substitute, Open Approach (ICD-10-PCS; principal; 2017-10-30 11:00)
DX: K40.90 Unilateral inguinal hernia, without obstruction or gangrene, not specified as recurrent (principal); I10 Essential (primary) hypertension; E11.9 Type 2 diabetes mellitus without complications; Z79.84 Long term (current) use of oral hypoglycemic drugs
CPT/HCPCS: 82962; 88304-TC; 94760